=== PATIENT | male | born 1960 | race American Indian/Alaskan Native ===

== ENCOUNTER 2019-05-18 09:46 | Day surgery (SDC) | payer OTHER ==
[~2019-05-18 09:46] MED LIST: NACL 0.9% 1000 ML 1,000 ML IV SCH
--- NOTE | 2019-05-18 11:50 | Anesthesia Consultation ---
Anesthesia Consult and Med Hx Date of service: 05/18/19 - Airway Anesthetic Teeth Evaluation: Good, Partials ROM Head & Neck: Adequate Mental/Hyoid Distance: Adequate Mallampati Class: Class II Intubation Access Assessment: Good - Pre-Operative Health Status ASA Pre-Surgery Classification: ASA3 Proposed Anesthetic Plan: MAC - Pulmonary Hx Asthma: Yes - Cardiovascular System Hx Coronary Artery Disease: Yes (CHF 20-25%) Hx Heart Attack/AMI: No (can walk a city block; can walk one flight of stairs) Hx Internal Defibrillator: Yes (Never discharged; 12/12) - Central Nervous System CVA: Yes
--- NOTE | 2019-05-18 11:55 | Anesthesia Day of Surgery ---
Anesthesia Day of Surgery - Day of Surgery Patient Examined: Yes Patient H&P Reviewed: Yes Patient is NPO: Yes Beta Blockers: Yes
[2019-05-18] MEDS ORDERED: XYLOCAINE MPF 2% ONE (13:00)
[2019-05-18] MEDS ORDERED: VERSED ONE (13:26)
[2019-05-18] MEDS ORDERED: DIPRIVAN 10 MG/ML IV ONE (13:27)
[2019-05-18] MEDS ORDERED: AMIDATE IV ONE (13:29)
--- NOTE | 2019-05-18 13:44 | Short Stay Summary ---
Short Stay Documentation Date of service: 05/18/19 Narrative H&P: The patient presents for EGD to evaluate epigastric abdominal pain, nausea and vomiting. - History Past Medical History: CAD, other (asthma) Past Surgical History: Other (defibrillator) Social history: no significant social history, lives with family, smoking - Allergies and Medications Current Medications: Allergies No Known Allergies Allergy (Verified 05/15/19 10:35) Home Medications Medication Instructions Recorded Confirmed Last Taken Type Acetaminophen 650 mg PO PRN PRN 05/15/19 05/15/19 Unknown History Atorvastatin 80 mg PO DAILY 05/15/19 05/18/19 05/17/19 History Carvedilol 3.125 mg PO DAILY 05/15/19 05/18/19 05/18/19 History Lisinopril 5 mg PO DAILY 05/15/19 05/18/19 05/18/19 History Montelukast 10 mg PO DAILY 05/15/19 05/18/19 05/17/19 History Spironolactone 25 mg PO DAILY 05/15/19 05/15/19 Unknown History Warfarin 5 mg PO DAILY 05/15/19 05/18/19 05/04/19 History Warfarin 7.5 mg PO 3XW 05/15/19 05/18/19 05/04/19 History Active Medications Sodium Chloride (Nacl 0.9% 1000 Ml) 1,000 mls @ 50 mls/hr IV DIRECT ONIEL Last Admin: 05/18/19 12:00 Dose: 50 mls/hr Documented by: - Physical exam General appearance: no acute distress, well-nourished Integumentary: no rash, no growths, no abnormal pigmentation HEENT: Atraumatic, PERRLA, EOMI, Mucous membr. moist/pink Lungs: Clear to auscultation Heart: Regular rate, Normal S1, Normal S2, No murmurs Gastrointestinal: normoactive bowel sounds, no tenderness, no distended, no masses, no guarding, no organomegaly Male Genitourinary: deferred Rectal Exam: deferred Extremities: no ischemia, pulses intact, pulses symmetrical, No edema, normal temperature, normal color Neurological: Normal gait, Normal speech, Strength at 5/5 X4 ext, Normal tone, Sensation intact, Cranial nerves 3-12 NL - Brief post op/procedure progress note Date of procedure: 05/18/19 Findings: report dictated Estimated blood loss: none Pathology: list (antral biopsies for h.pylori) Specimen disposition: to lab Condition: stable - Disposition Condition at discharge: Good Disposition: DC-01 TO HOME OR SELFCARE - Discharge Diagnoses (1) Nausea and vomiting Status: Acute (2) Epigastric pain Status: Acute Short Stay Discharge Plan Activity: other (restart Eliquis in 2 days, no driving for 24 hours) Weight Bearing Status: Weight Bear as Tolerated Diet: regular Follow up with: PARAM HONG SR, MD [Primary Care Provider] - 7 Days
--- NOTE | 2019-05-18 13:46 | Operative Report ---
Operative Report Operative Report: Date of procedure: 05/18/2019 Procedure: Esophagogastroduodenoscopy with antral biopsies for H. pylori Preprocedure diagnosis: Nausea, vomiting and epigastric pain Post procedure diagnosis: Mild to moderate erosive antral gastritis. Endoscopist: Dr. Love Anesthesia: Monitored anesthesia care per anesthesia department Medications: Propofol per anesthesia Estimated blood loss: 0 After careful discussion of the nature and purpose of the procedure as well as details the technique risks benefits and alternatives consent was obtained. The patient was placed in the left lateral decubitus position and medicated per anesthesia. The tip of the [employer] EQ 570 video scope was passed per orum under direct vision into the esophagus and advanced into the stomach and descending duodenum. The descending duodenum the duodenal bulb and pylorus were symmetrical and normal. The scope was withdrawn into the stomach and the stomach then gently insufflated with air. The antrum revealed multiple punctate erosions. No deep ulcers were present. Biopsies were taken in the prepyloric area for H. pylori testing. The stomach was further insufflated and the scope was then retroflexed and partially withdrawn. The cardia, fundus, and body of the stomach were within normal limits and easily distensible.The scope was then withdrawn in the forward position. The esophagogastric junction was at 40cm. The esophageal body was normal throughout. The procedure was was well tolerated and the patient was observed in recovery. Impressions: Erosive antral gastritis. No ulcers. Plan: Restart PPI therapy. Ondansetron when necessary. Patient will call the office in 10 days to discuss the pathology report and further management. Electronically signed: Andres Love MD
[2019-05-18 14:19] VITALS: BP 137/86
== END 2019-05-18 09:47 | disposition home or self-care (01) ==
LOC: GIO 09:46
PROVIDERS: ATTEND Internal Medicine Gastroenterology
DX: K29.50 Unspecified chronic gastritis without bleeding (principal); I50.9 Heart failure, unspecified; I25.10 Atherosclerotic heart disease of native coronary artery without angina pectoris; J45.909 Unspecified asthma, uncomplicated; Z98.890 Other specified postprocedural states; Z79.899 Other long term (current) drug therapy; Z86.73 Personal history of transient ischemic attack (TIA), and cerebral infarction without residual deficits
CPT/HCPCS: 43239; 88305; 88342; J2250; J2704; J7030